=== PATIENT | female | born 1980 | race Caucasian/White ===

== ENCOUNTER 2024-09-09 11:51 | Emergency (ER) | payer OTHER ==
[~2024-09-09] VITALS: Ht 149.9 cm; Wt 70.1 kg
[2024-09-09 11:59] VITALS: BP 110/73; PULSE 100; RESP 20; TEMP 99.4; O2SAT 98
[2024-09-09 12:35] LABS: APPEARANCE,URINE CLEAR (CLEAR); BILIRUBIN,URINE NEGATIVE (NEGATIVE); BLOOD, URINE TRACE-I (NEGATIVE); LEUKOCYTE ESTERASE ,URINE 1+ (NEGATIVE); NITRITE, URINE NEGATIVE (NEGATIVE); PROTEIN,URINE NEGATIVE (NEGATIVE); UGLUCOSE NEGATIVE (NEGATIVE); UROBILINOGEN,URINE 0.2 EU/dL (0.2 - 1)
[2024-09-09 12:44] LABS: COLOR,URINE SLIGHT BLOODY (YELLOW)
[2024-09-09 13:08] LABS: BACTERIA,URINE 1+ /HPF (None Seen); RBC,URINE 0-5 /HPF (0-5); SQUAMOUS EPITHELIAL CELL,UR >10 (MANY) /LPF (0-3 (FEW))
[2024-09-09 14:34] LABS: FLU B ANTIGEN negative (NEGATIVE)
[2024-09-09 14:36] LABS: FLU A ANTIGEN POSITIVE (NEGATIVE)
[2024-09-09] MEDS ORDERED: LORA1T1237 PO (14:45)
[2024-09-09] MEDS ORDERED: TRAM-748 PO (14:45)
[2024-09-09] MEDS ORDERED: TAM75 PO (14:45)
[2024-09-09] MEDS ORDERED: NITR100C7 PO (14:45)
[2024-09-09] MEDS: HYDROcodone/APAP 5/325 MG 1 TAB TAB PO ONE (14:46)
[2024-09-09 15:18] VITALS: BP 110/73; PULSE 100; RESP 20; TEMP 99.4; O2SAT 98
== END 2024-09-09 15:18 | disposition home or self-care (01) ==
LOC: MED 11:51
DX: N39.0 Urinary tract infection, site not specified (principal); J10.1 Influenza due to other identified influenza virus with other respiratory manifestations; Z20.822 Contact with and (suspected) exposure to COVID-19; Z79.899 Other long term (current) drug therapy; Z88.6 Allergy status to analgesic agent
CPT/HCPCS: 81001; 81025; 87086; 99283